=== PATIENT | female | born 1940 | race Caucasian/White ===

== ENCOUNTER 2020-01-04 09:57 | Emergency (ER) | payer OTHER ==
[~2020-01-04] VITALS: Ht 152.4 cm; Wt 45.4 kg
[~2020-01-04 09:57] MED LIST: ACTONEL150 MG; ATACAND32 MG; COUMADIN3 MG; COUMADIN4 MG; CRESTOR20 MG; FOLIC ACID1 MG; IOPHEN DM-100 MG/5 M PO; PROVENTIL3 ML/2.5 M IH; ZITHROMAX500 MG PO
[2020-01-04] MEDS ORDERED: TOPROL XL100 M1 PO (10:46)
[2020-01-04] MEDS ORDERED: AMLODIPINE BESYL5 MG PO (11:03)
[2020-01-04] MEDS ORDERED: FENOFIBRIC ACID35 MG PO (11:04)
[2020-01-04] MEDS ORDERED: LEVOTHYROXINE25 MCG PO (11:04)
[2020-01-04] MEDS ORDERED: ATORVASTATIN CA10 MG PO (11:05)
[2020-01-04] MEDS ORDERED: MUCINEX DM ER1 EAC1 PO (16:52)
[2020-01-04] MEDS ORDERED: TESSALON PERLE100 M1 PO (16:52)
[2020-01-04] MEDS ORDERED: MEDROLPACK PO (16:52)
[2020-01-04] MEDS ORDERED: LEVAQUIN500 MG PO (16:52)
[2020-01-04] MEDS ORDERED: BUDESONIDE0.5 MG/21 IH (17:00)
[2020-01-04] MEDS ORDERED: IPRAT-ALBUT 0.5-3 ML IH (17:00)
== END 2020-01-04 17:08 | disposition home or self-care (01) ==
LOC: ER 09:57
DX: R07.89 Other chest pain (principal); J06.9 Acute upper respiratory infection, unspecified; B96.0 Mycoplasma pneumoniae [M. pneumoniae] as the cause of diseases classified elsewhere; N39.0 Urinary tract infection, site not specified

== ENCOUNTER 2020-05-04 19:29 | Inpatient (IN) | payer OTHER ==
[~2020-05-04] VITALS: Ht 165.1 cm; Wt 56.7 kg
[~2020-05-04 19:29] MED LIST changes: +AMLODIPINE BESYL5 MG PO; +ATORVASTATIN CA10 MG PO; +BUDESONIDE0.5 MG/21 IH; +FENOFIBRIC ACID35 MG PO; +IPRAT-ALBUT 0.5-3 ML IH; +LEVAQUIN500 MG PO; +LEVOTHYROXINE25 MCG PO; +MEDROLPACK PO; +MUCINEX DM ER1 EAC1 PO; +TESSALON PERLE100 M1 PO; +TOPROL XL100 M1 PO
--- NOTE | 2020-05-04 19:58 | NUR ---
PACIENTE ALERTA, ORIENTADA X 3 ESFERAS ACOMPANADA DE FAMILIAR LLEGA EN AMBULANCIA REFIERE RENZO DOLOR ABDOMINAL QUE SE IRRADIA AL COSTADO , SUPERIOR, Y LE PROVOCA DOLOR DE PECHO, CON PULSO 128. SE UBICA EN DANGELO # 12 , CON BARRANDAS ELEVADAS, EN MODALIDAD MAS BAJA LA CAMA.
--- NOTE | 2020-05-04 20:31 | NUR ---
SE ORIENTA AL PACIENTE SOBRE EL TX. SE EXTRAEN MUESTRAS DE LAUREEN BAJO MEDIDAS ASEPTICAS SE ROTULAN Y ENVIAN AL LABORATORIO. SE CANALIZA Y COLOCA H/L SE NOTIFICAN TERAPIAS Y ABGS A PERSONAL DE CUIDADO RESPIRATORIO.
--- NOTE | 2020-05-04 23:00 | NUR ---
SE RECIBE DE TURNO ANTERIOR FEMINA DE 80 ANOS,ALERTA,ORIENTADA EN HANSA ABIGAIL ESFERAS,DESCANSANDO EN CAMA NIVEL MAS BAJO,BARANDAS ELEVADAS,FRENOS,MOORE DE IDENTIFICACION COLOCADOS POR SEGURIDAD. EN COMPANIA DE FAMILIAR. ASISTIDA RESPIRATORIAMENTE POR V.M. AL 35%. SE OBSERVA CON BUEN PATRON RESPIRATORIO. VENOPUNCION PATENTE, SE OBSERVA AREA [place],SECA,VIRGINIE DE S/S EDEMA Y/O ERITEMA. PENDIENTE RESULTADO DE U/A PARA RE EVALUACION MEDICA.
== END 2020-05-11 13:05 | disposition home or self-care (01) | DRG 191 ==
LOC: ER 19:29 → SEC-K 05-05 08:14 → MEDJ 05-05 08:14
PROVIDERS: ADMIT Internal Medicine; ATTEND Internal Medicine
PROC: BB24ZZZ Computerized Tomography (CT Scan) of Bilateral Lungs (ICD-10-PCS; principal; 2020-05-05)
PROC: 3E0F7GC Introduction of Other Therapeutic Substance into Respiratory Tract, Via Natural or Artificial Opening (ICD-10-PCS; 2020-05-05)
PROC: 4A033R1 Measurement of Arterial Saturation, Peripheral, Percutaneous Approach (ICD-10-PCS; 2020-05-05)
PROC: 8E0ZXY6 Isolation (ICD-10-PCS; 2020-05-05)
PROC: 0T9B70Z Drainage of Bladder with Drainage Device, Via Natural or Artificial Opening (ICD-10-PCS; 2020-05-05)
DX: J44.0 Chronic obstructive pulmonary disease with (acute) lower respiratory infection (principal); N39.0 Urinary tract infection, site not specified; J98.11 Atelectasis; J90 Pleural effusion, not elsewhere classified; J22 Unspecified acute lower respiratory infection; E03.8 Other specified hypothyroidism; R07.89 Other chest pain; M06.9 Rheumatoid arthritis, unspecified; N39.8 Other specified disorders of urinary system; Z20.828 Contact with and (suspected) exposure to other viral communicable diseases; Z74.01 Bed confinement status

== ENCOUNTER 2020-08-05 19:25 | Inpatient (IN) | payer OTHER ==
[~2020-08-05] VITALS: Ht 162.6 cm; Wt 59.0 kg
[2020-08-05] MEDS ORDERED: WARFARIN SODIUM4 MG PO (20:22)
[2020-08-05] MEDS ORDERED: JANTOVEN3 MG (20:23)
[2020-08-05] MEDS ORDERED: NORVASC5 MG PO (20:23)
[2020-08-05] MEDS ORDERED: SYNTHROID50 MCG PO (20:24)
[2020-08-05] MEDS ORDERED: TOPROL XL100 M1 (20:24)
[2020-08-05] MEDS ORDERED: LASIX20 MG PO (20:24)
[2020-08-05] MEDS ORDERED: MELATONIN3 M1 PO (20:24)
== END 2020-09-10 08:07 | disposition expired | DRG 64 ==
LOC: ER 19:25 → ICU-2 08-06 11:40 → ICU 08-07 20:39 → MEDI 09-04 16:18
PROVIDERS: ADMIT Internal Medicine; ATTEND Internal Medicine
PROC: BW38ZZZ Magnetic Resonance Imaging (MRI) of Head (ICD-10-PCS; 2020-08-06)
PROC: B345ZZZ Ultrasonography of Bilateral Common Carotid Arteries (ICD-10-PCS; 2020-08-06)
PROC: B24BZZZ Ultrasonography of Heart with Aorta (ICD-10-PCS; 2020-08-06)
PROC: 05H633Z Insertion of Infusion Device into Left Subclavian Vein, Percutaneous Approach (ICD-10-PCS; 2020-08-08)
PROC: BW28ZZZ Computerized Tomography (CT Scan) of Head (ICD-10-PCS; 2020-08-08)
PROC: BW28ZZZ Computerized Tomography (CT Scan) of Head (ICD-10-PCS; 2020-08-08)
PROC: 4A033R1 Measurement of Arterial Saturation, Peripheral, Percutaneous Approach (ICD-10-PCS; 2020-08-16)
PROC: 3E0F7SF Introduction of Other Gas into Respiratory Tract, Via Natural or Artificial Opening (ICD-10-PCS; 2020-08-16)
PROC: CB2YYZZ Tomographic (Tomo) Nuclear Medicine Imaging of Respiratory System using Other Radionuclide (ICD-10-PCS; 2020-08-18)
PROC: 02HV33Z Insertion of Infusion Device into Superior Vena Cava, Percutaneous Approach (ICD-10-PCS; principal; 2020-08-28)
PROC: 3E0436Z Introduction of Nutritional Substance into Central Vein, Percutaneous Approach (ICD-10-PCS; 2020-08-31)
PROC: 0DH63UZ Insertion of Feeding Device into Stomach, Percutaneous Approach (ICD-10-PCS; 2020-08-31)
PROC: 4A12X4Z Monitoring of Cardiac Electrical Activity, External Approach (ICD-10-PCS; 2020-09-09)
DX: I63.512 Cerebral infarction due to unspecified occlusion or stenosis of left middle cerebral artery (principal); J69.0 Pneumonitis due to inhalation of food and vomit; N39.0 Urinary tract infection, site not specified; I47.1 Supraventricular tachycardia; J98.11 Atelectasis; E87.3 Alkalosis; I69.351 Hemiplegia and hemiparesis following cerebral infarction affecting right dominant side; E87.1 Hypo-osmolality and hyponatremia; Z20.828 Contact with and (suspected) exposure to other viral communicable diseases; I10 Essential (primary) hypertension; E03.9 Hypothyroidism, unspecified; Z74.01 Bed confinement status; J44.9 Chronic obstructive pulmonary disease, unspecified; G93.0 Cerebral cysts; M06.8A Other specified rheumatoid arthritis, other specified site; I69.320 Aphasia following cerebral infarction; J01.00 Acute maxillary sinusitis, unspecified; B96.89 Other specified bacterial agents as the cause of diseases classified elsewhere; R13.19 Other dysphagia
CPT/HCPCS: 70544